=== PATIENT | female | born 1990 | race Caucasian/White ===

== ENCOUNTER 2024-01-13 18:08 | Emergency (ER) | payer OTHER, SELFPAY ==
[2024-01-13 18:20] VITALS: BP 105/76; PULSE 101; RESP 18; TEMP 37.3; O2SAT 100
--- NOTE | 2024-01-13 18:29 | ED.URI ---
HPI - URI/Sore Throat General Chief Complaint: Upper Respiratory Infection Stated Complaint: Cough,Fever,Trouble Breathing,Congestion Time Seen by Provider: 01/13/24 18:29 Source: patient Mode of arrival: ambulatory Limitations: no limitations History of Present Illness HPI Narrative: 33-year-old female presents with complaint of cough, nasal congestion, fatigue, dizziness, body aches for 4 days. Afebrile. Taking DayQuil to treat symptoms. Patient requesting inhaler, states she is having coughing fits that cause shortness of breath. Thinks inhaler may help with reactive airway. All systems reviewed and negative except as noted above. Related Data Home Medications Medication Instructions Recorded Confirmed famotidine 20 mg tablet 20 mg PO BID 01/13/24 01/13/24 zskaum-amhtdtwp-wssqfar 1 cap PO DAILY 01/13/24 01/13/24 3,000-9,500-15,000 unit capsule, delayed rel (Creon) omeprazole 40 mg capsule,delayed 40 mg PO DAILY 01/13/24 01/13/24 release ondansetron HCl 4 mg tablet 4 mg PO Q6H PRN Nausea And Vomiting 01/13/24 01/13/24 promethazine 25 mg tablet 25 mg PO TID PRN Nausea 01/13/24 01/13/24 Allergies Allergy/AdvReac Type Severity Reaction Status Date / Time skin glue AdvReac Mild Rash Uncoded 01/13/24 18:34 Review of Systems Review of Systems: CONSTITUTIONAL: Denies fever, chills, or sweats. reports fatigue. EYES: Denies visual changes, redness, or discharge. ENT: reports rhinorrhea, congestion. Denies sore throat, or otalgia. CARDIOVASCULAR: Denies chest pain, palpitations, or edema. RESPIRATORY: Reports cough. Denies dyspnea. GASTROINTESTINAL: Denies abdominal pain, nausea, vomiting, or diarrhea. GENITOURINARY: Denies dysuria or hematuria. SKIN: Denies rash or itching. MUSCULOSKELETAL: Denies back pain, joint pain, or myalgia. NEUROLOGIC: Denies headache, numbness, or weakness. PSYCHIATRIC: Denies anxiety or depression. All other systems reviewed are negative, except as documented in HPI. REPLACED BY [facility] Comments At time of signature, agree with nursing past medical, surgical, social and family history. There is no relevant family history pertinent to the presenting complaint. Exam Narrative: GENERAL: This is a well-nourished, well-developed patient, in no apparent distress. HEAD: normocephalic, atraumatic. EYES: PERRL. Sclera clear/white. Vision is grossly intact. EARS: External ears normal, auditory canals clear and without drainage, TMs normal without perforation. Hearing grossly intact. NOSE: External nose normal with Clear nasal drainage, mild congestion, erythema to both nares. THROAT: Mucous membranes moist, Clear postnasal drainage without erythema or swelling. NECK: Neck supple, non-tender without lymphadenopathy, masses or thyromegaly. CARDIOVASCULAR: Regular rate and rhythm without murmurs, gallops, or rubs. RESPIRATORY: Clear to auscultation. Breath sounds equal bilaterally. No wheezes, rales, or rhonchi. SKIN: warm, Dry, intact with no suspicious lesions or rash, good texture and turgor. NEURO: awake, alert, and oriented to person, place and time. There were no obvious focal neurologic abnormalities. EXTREMITIES: No joint tenderness, effusion, or edema noted. Course Course Level of Care: Express Care Visit Vital Signs Vital signs: Vital Signs Temperature 37.3 C 01/13/24 18:20 Pulse Rate 101 H 01/13/24 18:20 Respiratory Rate 18 01/13/24 18:20 Blood Pressure 105/76 01/13/24 18:20 Pulse Oximetry 100 01/13/24 18:20 Oxygen Delivery Room Air 01/13/24 18:20 Temperature 37.3 C 01/13/24 18:20 Pulse Rate 101 H 01/13/24 18:20 Respiratory Rate 18 01/13/24 18:20 Blood Pressure 105/76 01/13/24 18:20 Pulse Oximetry 100 01/13/24 18:20 Oxygen Delivery Room Air 01/13/24 18:20 Reviewed MDM - URI/Sore Throat MDM Narrative Medical decision making narrative: Patient is aware of diagnosis, understands and agrees to treatment plan. An
== END 2024-01-13 18:47 | disposition home or self-care (01) ==
PROVIDERS: Emergency Provider Nurse Practitioner Family; PCP Physician Assistant
DX: J06.9 Acute upper respiratory infection, unspecified (principal)
CPT/HCPCS: 99213; G0463